=== PATIENT | female | born 1955 | race Caucasian/White ===

== ENCOUNTER 2018-06-20 10:40 | Day surgery (SDC) | payer MEDICARE, BC ==
[~2018-06-20] VITALS: Ht 175.3 cm; Wt 100.7 kg
[~2018-06-20 10:40] MED LIST: ALEVE220 MG PO; AMARYL4 MG PO; AMLODIPINE BESYL5 MG PO; ATENOLOL50 MG PO; B COMPLEX1 EACH PO; BASAGLAR K100 UNIT/1; BUSPIRONE HCL15 MG PO; CARTIA XT180 MG PO; CARTIA XT240 MG PO; CATAPRES0.2 MG PO; CHILDREN'S ASPI81 M1 PO; CLINDAMYCIN HC300 MG PO; CYCLOBENZAPRINE10 MG PO; CYMBALTA30 MG PO; DILTIAZEM 24HR180 MG PO; DOXAZOSIN MESYLA1 MG PO; FAMOTIDINE40 MG PO; FENOFIBRATE145 MG PO; FISH OIL 1,0001 EAC3 PO; FISH OIL 1,2001 EACH PO; FRESHKOTE15 ML OPTH; GLUCOPHAGE1000 MG PO; GLUCOSAMINE H1500 MG PO; HUMALOG100 UNIT/1 SUB-Q; LANTUS100 UNITS/ INJ; LASIX20 MG PO; LIPITOR40 MG PO; LUNESTA3 MG PO; METOPROLOL SUCC50 MG PO; MICARDIS80 MG PO; MULTI VITAMIN1 EACH PO; NORCO 5-325 TA1 EACH PO; OMEPRAZOLE20 MG PO; PILOCARPINE HC7.5 MG PO; VICTOZA 2-0.6 MG/0.1 INJ; VITAMIN C500 MG/15 PO; VITAMIN D5000 UNIT PO; XIIDRA1 EACH OP; ZOFRAN ODT4 MG PO
--- NOTE | 2018-06-20 13:12 | NUR ---
06/20/18 1312 Farzaneh Arteaga 1254 PATIENT ARRIVES TO PACU SLEEPING, ORAL AIRWAY IN PLACE. MASK AT 6 LITERS. 1255 PATIENT OPENING EYES. FOLLOWS COMMANDS. ORAL AIRWAY REMOVED. MASK CONTINUED AT 6 LITERS. 1300 PATIENT AWAKE BUT DROWSY, RATES PAIN AT 2/10. RESP EVEN AND UNLABORED, ROOM AIR SATS >90%. 1310 PATIENT AWAKE. CONTINUES TO RATE PAIN AT 2/10.
--- NOTE | 2018-06-20 13:25 | NUR ---
PT RETURNS TO ROOM 5 ON RA. PT AWAKE AND ORIENTED. PT DENIES PAIN/NAUSEA AT THIS TIME. PT PROVIDED WITH COFFEE AND WATER PER REQUEST. LUNCH ORDERED. CALL LIGHT WITHIN REACH.
--- NOTE | 2018-06-20 14:28 | NUR ---
PT MEDICATED FOR 5/10 PAIN SEE EMAR. LUNCH AT BEDSIDE. CALL LIGHT WITHIN REACH
--- NOTE | 2018-06-20 16:21 | NUR ---
1450: VS CHECKED. TOLERATED SANDWICH, COFFEE, AND WATER. PATIENT ASSISTED OOB AND TO BATHROOM. GAIT STEADY. VOID WITHOUT DIFFICULTY. GATI STEADY BACK TO ROOM. PATIENT GETTING DRESSED. 1540: DISCHARGE INSTRUCTIONS GIVEN TO PATIENT. IV DC'D WNL. TIP INTACT. DRESSING APPLIED. AWAITING TAXI.
--- NOTE | 2018-06-23 06:57 | OR ---
[facility] [address] [place], [place] [address] Signed DATE OF OPERATION: 06/20/2018 SURGEON: Taz Saab MD PREOPERATIVE DIAGNOSIS: Medial meniscus tear, right knee. POSTOPERATIVE DIAGNOSES: 1. Medial and lateral meniscus tears, right knee. 2. Chondromalacia of the medial compartment. PROCEDURE PERFORMED: Right knee arthroscopy with partial medial and lateral menisci. ANESTHESIA: General. BANDOLEER PACKER: None. BLOOD LOSS: Minimal. BRIEF HISTORY: Michelle is a 63-year-old female with reasonably good x-rays, however, she had a large meniscus. The MRI showed medial meniscus tear. Risks and benefits of operative treatment were discussed with her. She elected to proceed. Once consent was obtained, she was taken to the operating room. After adequate anesthesia, she was placed on the operating table, left leg was flexed, abducted, and externally rotated on a well-padded leg lara. The right leg was not placed on a tourniquet, it was placed in leg lara. The portal sites were pre-injected using 0.25% Marcaine with epinephrine under alcohol prep. The leg was then prepped and draped in a standard sterile fashion and standard inferior lateral and superior lateral portals were made. The scope was introduced into the arthroscopic findings. The patella showed grade 1 to grade 2 chondromalacia of the trochlea. Medial and lateral gutters were clear. ACL and PCL were intact. Lateral compartment showed degenerative fraying of the meniscus involving about 50% of the posterior half. The chondral surfaces were intact. Medial compartment showed marked degenerative tearing of the meniscus from midbody posteriorly. There was a grade 3 and there was a grade 4 chondromalacia to both sides Electronically Signed By: TAZ SAAB MD 06/23/18 0657 PATIENT NAME: MICHELLE HOLLIS OPERATIVE REPORT DATE OF : 51 REPORT #: [id number] PHYSICIAN: TAZ SAAB MD PCP: JENNIFER ATWOOD MD REPORT IS CONFIDENTIAL AND NOT TO BE RELEASED WITHOUT AUTHORIZATION [facility] [address], [place] [address] Signed of the joint. DESCRIPTION OF PROCEDURE: Standard inferomedial portal was made after localization using a spinal needle. The straight and curved biters were used to trim the meniscus tears back to a stable rim. These were then smoothed using shaver and all debris was evacuated. One chondral loose body was found in the lateral compartment and this was removed with the shaver as well. The scope was then withdrawn. Portals were closed with 3-0 nylon and dressed with Adaptic ABD and Derrick wrap. We did inject the knee with 60 mg Toradol at the end the case. She tolerated procedure well. All sponge, needle, and instrument counts were correct. Taz Saab MD BA/KATHRYNL /[id number] Copies: ~ Electronically Signed By: TAZ SAAB MD 06/23/18 0657 PATIENT NAME: MICHELLE HOLLIS OPERATIVE REPORT DATE OF : 51 REPORT #: [id number] PHYSICIAN: TAZ SAAB MD PCP: JENNIFER ATWOOD MD REPORT IS CONFIDENTIAL AND NOT TO BE RELEASED WITHOUT AUTHORIZATION
== END 2018-06-20 15:40 | disposition home or self-care (01) ==
LOC: DS 10:40 → OPS 10:40 → DS 12:00 → OPS 12:00
PROVIDERS: Specialist
PROC: 0SBC4ZZ Excision of Right Knee Joint, Percutaneous Endoscopic Approach (ICD-10-PCS; principal; 2018-06-20 12:00)
DX: S83.241A Other tear of medial meniscus, current injury, right knee, initial encounter (principal); S83.281A Other tear of lateral meniscus, current injury, right knee, initial encounter; M22.41 Chondromalacia patellae, right knee; E11.9 Type 2 diabetes mellitus without complications; F32.9 Major depressive disorder, single episode, unspecified; I10 Essential (primary) hypertension; E78.00 Pure hypercholesterolemia, unspecified; F17.210 Nicotine dependence, cigarettes, uncomplicated; Z88.0 Allergy status to penicillin; Z88.2 Allergy status to sulfonamides; Z88.8 Allergy status to other drugs, medicaments and biological substances; Z79.899 Other long term (current) drug therapy; Z79.82 Long term (current) use of aspirin
CPT/HCPCS: 01400; J0690; J1885; J2250; J2704; J3010; J7120

== ENCOUNTER 2022-02-07 13:13 | Emergency (ER) | payer MEDICARE, BC ==
[~2022-02-07] VITALS: Ht 175.3 cm; Wt 100.7 kg
[~2022-02-07 13:13] MED LIST changes: +CEPHALEXIN500 M1 PO; +METRONIDAZOLE500 MG PO
[2022-02-07] MEDS ORDERED: NAPROSYN500 MG PO (15:12)
== END 2022-02-07 16:43 | disposition home or self-care (01) ==
LOC: ED 13:13
DX: S83.92XA Sprain of unspecified site of left knee, initial encounter (principal); I10 Essential (primary) hypertension; E11.9 Type 2 diabetes mellitus without complications; E78.00 Pure hypercholesterolemia, unspecified; F17.200 Nicotine dependence, unspecified, uncomplicated; Z88.2 Allergy status to sulfonamides; Z88.0 Allergy status to penicillin; Z88.8 Allergy status to other drugs, medicaments and biological substances; Z79.899 Other long term (current) drug therapy; Z79.4 Long term (current) use of insulin; Z79.82 Long term (current) use of aspirin; X50.1XXA Overexertion from prolonged static or awkward postures, initial encounter
CPT/HCPCS: 73560; 99283-25

== ENCOUNTER 2023-01-11 06:40 | Day surgery (SDC) | payer MEDICARE, BC ==
[2023-01-07 15:30] VITALS: BP 117/69
[~2023-01-11] VITALS: Ht 175.3 cm; Wt 104.0 kg
[~2023-01-11 06:40] MED LIST changes: +ARTHRITIS PAIN150 GM UL; +GABAPENTIN600 MG PO; +METFORMIN HCL500 M2 PO; +METOPROLOL-HCT1 EAC2 PO; +NAPROSYN500 MG PO
[2023-01-11 06:54] VITALS: BP 142/53
--- NOTE | 2023-01-11 10:01 | NUR ---
01/11/23 1001 Sheets,Haily 0949 PT ARRIVED TO PACU ON RA, PT WAKES EASILY AND DENEIS CONCERNS. 1000 PT SITTING IN HIGH FOWLERS AND TALKING TO RN. PT DENEIS CONCERNS.
[2023-01-11 10:15] VITALS: BP 136/62
--- NOTE | 2023-01-11 12:17 | OR ---
[facility] [address] [place], [place] [address] Signed DATE OF OPERATION: 01/11/2023 SURGEON: Aranza Palmer MD PREOPERATIVE DIAGNOSES: 1. Personal history of colonic polyps in 2004 at age 50. 2. External hemorrhoids. 3. Mild anemia with hemoglobin of 11.7, mean cell volume 89. POSTOPERATIVE DIAGNOSES: 1. Long redundant colon. 2. 3 mm polyp at 6 cm in rectum. 3. 4 mm polyp at 25 cm in sigmoid colon. 4. 4 mm polyps x2 at 95 cm in transverse colon. 5. 4 mm polyps x3 at 70 cm in left colon. PROCEDURE: Colonoscopy with hot biopsy. ESTIMATED BLOOD LOSS: None. INDICATIONS: Michelle is a 67-year-old obese diabetic female with significant sleep apnea and acid reflux and other medical issues. She has a very full round face and heavy abdomen as well. In that regard, she always needs monitored anesthesia care with propofol infusion. That actually worked out very well. She had been asked to come see me in the office for a followup colonoscopy. She underwent a colonoscopy in 2004 at the age of 50 [address] Karan Watkins. She had an adenomatous polyp removed from her transverse colon. She returned in 2016 at the age of 61. I helped her with hyperplastic and tubular adenomatous polyps. They were all less than 10 mm in diameter. She also has small external circumferential hemorrhoids. Medications, she used 14 mg of Versed and 225 mcg of fentanyl. She was frequently awake and talking and has recall of the procedure. Based on that plus what we discussed above, she really needs monitored anesthesia care particularly as she is getting older. On her preop blood work, she was a little anemic with a hemoglobin of 11.7, but the mean cell volume was normal at 89. In the office, I had given her a pamphlet on colonoscopy. We had reviewed the nature of the test. There is risk including, but not limited to gas bloating, crampy abdominal pain, bleeding, perforation requiring surgery, and missed diagnosis. We also reviewed the written instructions for her bowel prep line by line. We went through her Electronically Signed By: ARANZA PALMER MD 01/11/23 1217 PATIENT NAME: MICHELLE HOLLIS OPERATIVE REPORT DATE OF : 51 REPORT #: [id number] PHYSICIAN: ARANZA PALMER MD PCP: KARINA MARI DO REPORT IS CONFIDENTIAL AND NOT TO BE RELEASED WITHOUT AUTHORIZATION [facility] [address] [place] [address] Signed medications in detail as well. She had expressed understanding and wished to proceed. PROCEDURE NOTE: Michelle was taken into our endoscopy suite and placed in the left lateral decubitus position. She was given monitored anesthesia care per our nurse electrical maintenance engineer. She needed several boluses of propofol throughout the procedure. A digital rectal exam was performed and this was unremarkable. She had small circumferential external hemorrhoids. She had good sphincter tone. There were no masses. The adult colonoscope was introduced and advanced under direct visualization of the camera. It took a while to advance the scope with additional propofol. We needed some abdominal compression in order to advance the scope. She has a very large protuberant, but soft abdomen and we needed extra compression by our nurse to help get the scope around. She has a very long redundant colon. Eventually, we had to rotate her into the supine position. We finally got the camera around the splenic and hepatic flexures and right up to the ileocecal valve. We could not quite see into the cecum itself. Overall, her prep was good. We rotated her back into the left lateral decubitus position. Even then, we could not quite get into the cecum itself. After this, the scope was slowly withdrawn. We took pictures throughout for photodocumentation. The above-mentioned polyps were easily removed with the help of hot biopsy forceps. We did not see any diverticula. Once in the rectum, the scope had been retroflexed and very little in the way of any pathology above the anal canal. After this, the gas was suctioned out and colonoscope removed. Michelle tolerated the procedure quite well. RECOMMENDATIONS: I will see Michelle back in my office in 7 to 14 days to review her results. I suspect she will stay on the five year pain. She will always need monitored anesthesia care. We will offer her a barium enema if she wants to evaluate the cecum itself. Aranza Palmer MD ALB/MODL /[id number] cc: DO Aranza Villa MD Electronically Signed By: ARANZA PALMER MD 01/11/23 1217 PATIENT NAME: MICHELLE HOLLIS OPERATIVE REPORT DATE OF : 51 REPORT #: [id number] PHYSICIAN: ARANZA PALMER MD PCP: KARINA MARI DO REPORT IS CONFIDENTIAL AND NOT TO BE RELEASED WITHOUT AUTHORIZATION [facility] [address] [place], [place] [address] Signed Copies: KARINA MARI ANDREW L MD ~ Electronically Signed By: ARANZA PALMER MD 01/11/23 1217 PATIENT NAME: MICHELLE HOLLIS OPERATIVE REPORT DATE OF : 51 REPORT #: [id number] PHYSICIAN: ARANZA PALMER MD PCP: KARINA MARI DO REPORT IS CONFIDENTIAL AND NOT TO BE RELEASED WITHOUT AUTHORIZATION
--- NOTE | 2023-01-15 15:29 | PATH ---
[facility] [address] [place], [place] [address] Signed SPECIMEN(S): A RECTAL POLYP AT 6 CM SPECIMEN(S): B COLON POLYP SPECIMEN(S): C COLON POLYP AT 95 CM SPECIMEN(S): D DESCENDING/LEFT COLON POLYP AT 20 CM SPECIMEN SOURCE: A. RECTAL POLYP AT 6 CM B. COLON POLYP C. COLON POLYP AT 95 CM D. DESCENDING/LEFT COLON POLYP AT 20 CM CLINICAL HISTORY: History of polyps; diverticulosis. FINAL PATHOLOGIC DIAGNOSIS: A. Rectal polyp at 6 cm: - Hyperplastic polyp (multiple fragments). B. Colon polyp: - Hyperplastic polyp (one fragment). C. Colon polyp at 95 cm: - Hyperplastic polyp (two fragments). D. Descending/left colon polyp at 20 cm: - Tubular adenoma (one fragment). - Hyperplastic polyps (two fragments). JVR:brody MICROSCOPIC EXAMINATION: Histologic sections of all submitted blocks are examined by light microscopy. These findings, together with the gross examination, support the pathologic diagnosis. GROSS DESCRIPTION: A. The specimen, labeled and designated "Leatha, rectal polyp at 6 cm," is received in formalin and consists of five logan soft tissue fragments, ranging from 0.2 cm. Entirely submitted in (A1). B. The specimen, labeled and designated "Mortier, colon polyp," is received in formalin and consists of one logan soft tissue fragment, 0.2 cm. Entirely submitted in (B1). C. The specimen, labeled and designated "Mortier, colon polyp at 95 cm," is received in formalin and consists of two logan soft tissue fragments, ranging from 0.2 cm. Entirely submitted in (C1). PATIENT NAME: ALIYA HOLLIS PATHOLOGY DATE OF : 51 REPORT #: [id number] PHYSICIAN: LAUREN ROSARIO PCP: KARINA MARI DO REPORT IS CONFIDENTIAL AND NOT TO BE RELEASED WITHOUT AUTHORIZATION [facility] [address] [place], [place] [address] Signed D. The specimen, labeled and designated "Leatha, descending colon polyp at 20 cm," is received in formalin and consists of three logan soft tissue fragments, ranging from 0.2 cm. Entirely submitted in (D1). JS (under the direct supervision of a pathologist) The Gross Description was prepared using a voice recognition system. The report was reviewed for accuracy; however, sound-alike word errors, addition and/or deletions may occur. If there is any question about this report, please contact Client Services. PERFORMING LABORATORY: Technical component was performed by [facility], [address] [place] [id number] (CLIA# [id number]). Professional interpretation was performed by [facility], [address] [place] [id number] (CLIA#: [id number]). Diagnostician: Red Santiago MD Pathologist Electronically Signed 01/15/2023 Copies: ~ PATIENT NAME: ALIYA HOLLIS PATHOLOGY DATE OF : 51 REPORT #: [id number] PHYSICIAN: LAUREN ROSARIO PCP: KARINA MARI DO REPORT IS CONFIDENTIAL AND NOT TO BE RELEASED WITHOUT AUTHORIZATION
== END 2023-01-11 10:27 | disposition home or self-care (01) ==
LOC: OPS 06:40 → DS 06:40 → OPS 08:10 → DS 08:15 → OPS 10:27 → DS 12:15 → OPS 12:15
PROVIDERS: ATTEND Colon & Rectal Surgery
PROC: 0DBP8ZZ Excision of Rectum, Via Natural or Artificial Opening Endoscopic (ICD-10-PCS; 2023-01-11)
PROC: 0DBM8ZZ Excision of Descending Colon, Via Natural or Artificial Opening Endoscopic (ICD-10-PCS; principal; 2023-01-11 08:10)
DX: D12.4 Benign neoplasm of descending colon (principal); K63.5 Polyp of colon; D64.9 Anemia, unspecified; Z86.010 Personal history of colon polyps; K64.4 Residual hemorrhoidal skin tags; K21.9 Gastro-esophageal reflux disease without esophagitis; G47.33 Obstructive sleep apnea (adult) (pediatric); I10 Essential (primary) hypertension; E11.9 Type 2 diabetes mellitus without complications; R06.00 Dyspnea, unspecified; I34.0 Nonrheumatic mitral (valve) insufficiency; F17.200 Nicotine dependence, unspecified, uncomplicated; G89.29 Other chronic pain; E66.9 Obesity, unspecified; Z88.2 Allergy status to sulfonamides; Z88.0 Allergy status to penicillin; Z68.34 Body mass index [BMI] 34.0-34.9, adult; K62.1 Rectal polyp
CPT/HCPCS: 00811; J2001; J2704; J3010; J7121